=== PATIENT | female | born 1985 | race African-American/Black ===

== ENCOUNTER 2016-10-10 18:56 | Emergency (ER) | payer OTHER ==
[~2016-10-10] VITALS: Ht 160 cm; Wt 122.0 kg
[~2016-10-10 18:56] MED LIST: ADVIL200 MG PO; PROTONIX40 MG PO
== END 2016-10-10 23:41 | disposition home or self-care (01) ==
LOC: ED 18:56
DX: A08.4 Viral intestinal infection, unspecified (principal); Z88.5 Allergy status to narcotic agent; Z91.018 Allergy to other foods; Z88.1 Allergy status to other antibiotic agents
CPT/HCPCS: 36415; 70450; 80053; 85025; 85651; 99284

== ENCOUNTER 2017-03-23 16:54 | Emergency (ER) | payer OTHER | END 2017-03-23 18:22 | disposition home or self-care (01) | LOC: ED 16:54 | DX: Z53.21 Procedure and treatment not carried out due to patient leaving prior to being seen by health care provider (principal) ==

== ENCOUNTER 2017-05-10 01:05 | Emergency (ER) | payer OTHER ==
[~2017-05-10] VITALS: Ht 160 cm; Wt 118.8 kg
[2017-05-10] MEDS ORDERED: DOXYCYCLINE HY100 MG PO (02:29)
== END 2017-05-10 02:37 | disposition home or self-care (01) ==
LOC: ED 01:05
DX: J40 Bronchitis, not specified as acute or chronic (principal); K21.9 Gastro-esophageal reflux disease without esophagitis; Z88.5 Allergy status to narcotic agent; Z91.018 Allergy to other foods; Z88.1 Allergy status to other antibiotic agents
CPT/HCPCS: 71046; 99283

== ENCOUNTER 2017-07-15 17:50 | Emergency (ER) | payer OTHER ==
[~2017-07-15] VITALS: Ht 160 cm; Wt 129.3 kg
[~2017-07-15 17:50] MED LIST changes: +DOXYCYCLINE HY100 MG PO
[2017-07-15] MEDS ORDERED: XANAX0.5 MG PO (18:49)
--- NOTE | 2017-07-16 07:16 | EKG ---
[facility] [address] [facility] [place], [place] [address] Signed Sinus tachycardia Otherwise normal ECG No previous ECGs available Confirmed by EVELIA WORLEY MD ([id number]) on 07/16/2017 7:15:57 AM Electronically Signed By: EVELIA WORLEY MD 07/16/17 0716 PATIENT NAME: REA CRAIG Electrocardiogram DATE OF : 87 PHYSICIAN: EVELIA WORLEY MD REPORT #: [id number] REPORT IS CONFIDENTIAL AND NOT TO BE RELEASED WITHOUT AUTHORIZATION
== END 2017-07-15 19:09 | disposition home or self-care (01) ==
LOC: ED 17:50
DX: F41.9 Anxiety disorder, unspecified (principal); R00.0 Tachycardia, unspecified; G43.909 Migraine, unspecified, not intractable, without status migrainosus; Z88.5 Allergy status to narcotic agent; Z91.018 Allergy to other foods; Z88.1 Allergy status to other antibiotic agents
CPT/HCPCS: 80048; 84484; 85025; 93005; 93010; 99283

== ENCOUNTER 2017-08-18 15:23 | Emergency (ER) | payer OTHER ==
[~2017-08-18] VITALS: Ht 160 cm; Wt 126.1 kg
[~2017-08-18 15:23] MED LIST changes: +XANAX0.5 MG PO
[2017-08-18] MEDS ORDERED: PROTONIX20 MG PO (15:31)
== END 2017-08-18 15:36 | disposition home or self-care (01) ==
LOC: ED 15:23
DX: R41.840 Attention and concentration deficit (principal)

== ENCOUNTER 2017-09-14 22:30 | Emergency (ER) | payer OTHER ==
[~2017-09-14] VITALS: Ht 160 cm; Wt 119.3 kg
[~2017-09-14 22:30] MED LIST changes: +PROTONIX20 MG PO
== END 2017-09-15 01:15 | disposition home or self-care (01) ==
LOC: ED 22:30
DX: R11.0 Nausea (principal); Z88.5 Allergy status to narcotic agent; Z91.018 Allergy to other foods; Z88.1 Allergy status to other antibiotic agents; Z88.8 Allergy status to other drugs, medicaments and biological substances; Z79.899 Other long term (current) drug therapy; Z87.891 Personal history of nicotine dependence
CPT/HCPCS: 80053; 81001; 83036; 84443; 84703; 85025; 99283

== ENCOUNTER 2018-04-08 01:18 | Emergency (ER) | payer OTHER, SELFPAY ==
[~2018-04-08] VITALS: Ht 160 cm; Wt 115.7 kg
[~2018-04-08 01:18] MED LIST changes: +DICYCLOMINE HCL20 MG PO; +KEFLEX500 MG PO; +ZOFRAN ODT4 MG PO; +ZOLOFT25 MG PO
--- OUTSIDE RECORDS SUMMARY | 2018-04-08 01:22 | XMS ---
PreManage Notification: REA CRAIG Security Hospital Monitor Events 1 event(s) in the past 18 months Most recent security events: Elopement at [facility] 03/23/2017 16:54 - Patient eloped before treatment completed. Details: LWBS CRITERIA MET - Group Notification CARE PROVIDERS LEXIE BURNETT Nurse Practitioner: Family 10/26/2017-Current PHONE: Unknown LEXIE BURNETT Primary Care Current PHONE: [phone] Juan C has no Care Guidelines for this patient. Care History Medical/Surgical 10/26/2017 [facility] - PATIENT NO SHOWED TO APT WITH PCP LEXIE BURNETT ON 01/01/18 AND HAS NOT BEEN SEEN AT THE CLINIC SINCE - Patient is currently established with [facility]. If patient is seen in the ED during business hours. Please contact CHWs at [facility]. Care Recommendation: This patient has had 5 or more Emergency Department visits in the last 12 months.\T\nbsp; Patient requires education on the scope and purpose of the ED as an acute care provider not a Primary Care Provider and should not be utilized for chronic conditions.\T\nbsp; These are guidelines and the provider should exercise clinical judgment when providing care. ECuca VISIT COUNT (12 MO.) 7 [facility] TOTAL 7 NOTE: Visits indicate total known visits. ED/UCC VISIT TRACKING (12 MO.) 04/08/2018 01:18 [facility] [place] TYPE: Emergency COMPLAINT: - VOMITING 02/17/2018 20:07 [facility] [place] TYPE: Emergency COMPLAINT: - HEAD PAIN/NON INJURY DIAGNOSES: - Allergy status to narcotic agent status - Allergy status to other antibiotic agents status - Allergy to other foods - Headache - Urinary tract infection, site not specified - Migraine, unspecified, not intractable, without status migrainosus - Other terminal operations manager (current) drug therapy - Allergy status to other drugs, medicaments and biological substances status 10/23/2017 20:32 [facility] [place] TYPE: Emergency COMPLAINT: - ABD PAIN DIAGNOSES: - Allergy status to other drugs, medicaments and biological substances status - Personal history of nicotine dependence - Allergy status to narcotic agent status - Allergy to other foods - Unspecified abdominal pain - Allergy status to other antibiotic agents status - Generalized abdominal pain - Other terminal operations manager (current) drug therapy 09/14/2017 22:30 [facility] [place] TYPE: Emergency COMPLAINT: - BLOOD SUGAR PROBLEM DIAGNOSES: - Other terminal operations manager (current) drug therapy - Nausea - Personal history of nicotine dependence - Allergy status to other drugs, medicaments and biological substances status - Allergy status to other antibiotic agents status - Allergy to other foods - Allergy status to narcotic agent status 08/18/2017 15:24 [facility] [place] TYPE: Emergency COMPLAINT: - POSS ISSUE WITH MEDS/MSE TO CLINIC DIAGNOSES: - Attention and concentration deficit 07/15/2017 17:50 [facility] [place] TYPE: Emergency COMPLAINT: - ABNORMAL VITALS DIAGNOSES: - Allergy status to other antibiotic agents status - Allergy to other foods - Migraine, unspecified, not intractable, without status migrainosus - Allergy status to narcotic agent status - Anxiety disorder, unspecified - Tachycardia, unspecified 05/10/2017 01:05 [facility] [place] TYPE: Emergency COMPLAINT: - CHEST CONGESTION DIAGNOSES: - Allergy to other foods - Gastro-esophageal reflux disease without esophagitis - Allergy status to narcotic agent status - Allergy status to other antibiotic agents status - Cough - Bronchitis, not specified as acute or chronic INPATIENT VISIT TRACKING (12 MO.) No inpatient visits to display in this time frame [id number]
[2018-04-08] MEDS ORDERED: MACROBID 100 M100 MG PO (05:04)
== END 2018-04-08 05:15 | disposition home or self-care (01) ==
LOC: ED 01:18
DX: K52.9 Noninfective gastroenteritis and colitis, unspecified (principal); Z91.018 Allergy to other foods; Z88.1 Allergy status to other antibiotic agents; Z88.5 Allergy status to narcotic agent; Z88.8 Allergy status to other drugs, medicaments and biological substances; Z79.899 Other long term (current) drug therapy
CPT/HCPCS: 80053; 81001; 83690; 85025; 87088; 87147; 96361; 96374; 96375; 99284-25; J2270; J2405; J7030

== ENCOUNTER 2019-06-18 11:36 | Emergency (ER) | payer OTHER ==
[~2019-06-18] VITALS: Ht 160 cm; Wt 115.7 kg
[~2019-06-18 11:36] MED LIST changes: +MACROBID 100 M100 MG PO
--- OUTSIDE RECORDS SUMMARY | 2019-06-18 11:38 | XMS ---
PreManage Notification: REA CRAIG Security Smoke Eater Events No recent Security Events currently on file CRITERIA MET - Group Notification - [facility] - Has Care Guidelines CARE PROVIDERS LEXIE BURNETT Nurse Practitioner: Family 10/26/2017-Current PHONE: [phone] LEXIE BURNETT Primary Care Current PHONE: [phone] Juan C has no Care Guidelines for this patient. Care History Medical/Surgical 10/26/2017 [facility] - PATIENT NO SHOWED TO APT WITH PCP LEXIE BURNETT ON 01/01/18 AND HAS NOT BEEN SEEN AT THE CLINIC SINCE - Patient is currently established with [facility]. If patient is seen in the ED during business hours. Please contact CHWs at [facility]. Care Recommendation: This patient has had 5 or more Emergency Department visits in the last 12 months.\T\nbsp; Patient requires education on the scope and purpose of the ED as an acute care provider not a Primary Care Provider and should not be utilized for chronic conditions.\T\nbsp; These are guidelines and the provider should exercise clinical judgment when providing care. Jessica VISIT COUNT (12 MO.) 1 [facility] TOTAL 1 NOTE: Visits indicate total known visits. ED/UCC VISIT TRACKING (12 MO.) 06/18/2019 11:36 [facility] [place] TYPE: Emergency COMPLAINT: - LOWER ABD PAIN INPATIENT VISIT TRACKING (12 MO.) No inpatient visits to display in this time frame [email or web address]
== END 2019-06-18 14:13 | disposition home or self-care (01) ==
LOC: ED 11:36
DX: R10.2 Pelvic and perineal pain (principal); G43.909 Migraine, unspecified, not intractable, without status migrainosus; Z87.891 Personal history of nicotine dependence
CPT/HCPCS: 76830; 76856; 81001; 84703; 85025; 96374; 99284-25; J1885

== ENCOUNTER 2020-06-09 20:18 | Emergency (ER) | payer OTHER ==
[~2020-06-09] VITALS: Ht 160 cm; Wt 135.2 kg
[~2020-06-09 20:18] MED LIST changes: +ZOFRAN4 MG PO
--- OUTSIDE RECORDS SUMMARY | 2020-06-09 20:22 | XMS ---
PreManage Notification: REA CRAIG Security Meeting Specialist Events 1 event(s) in the past 18 months Most recent security events: Elopement at [facility] 04/23/2020 16:53 - Other Details: PATIENT LWBS. CRITERIA MET - Group Notification CARE PROVIDERS LEXIE BURNETT Nurse Practitioner: Family 10/26/2017-Current PHONE: [phone] Juan C has no Care Guidelines for this patient. Care History Medical/Surgical 10/26/2017 [facility] - PATIENT NO SHOWED TO APT WITH PCP LEXIE BURNETT ON 01/01/18 AND HAS NOT BEEN SEEN AT THE CLINIC SINCE - Patient is currently established with [facility]. If patient is seen in the ED during business hours. Please contact CHWs at [facility]. Care Recommendation: This patient has had 5 or more Emergency Department visits in the last 12 months.\T\nbsp; Patient requires education on the scope and purpose of the ED as an acute care provider not a Primary Care Provider and should not be utilized for chronic conditions.\T\nbsp; These are guidelines and the provider should exercise clinical judgment when providing care. E.D. VISIT COUNT (12 MO.) [address] [facility] TOTAL 3 NOTE: Visits indicate total known visits. ED/UCC VISIT TRACKING (12 MO.) 06/09/2020 20:20 [facility] [place] TYPE: Emergency COMPLAINT: - RT FLANK PAIN 04/23/2020 16:53 [facility] [place] TYPE: Emergency COMPLAINT: - FALL 06/18/2019 11:36 [facility] [place] TYPE: Emergency COMPLAINT: - LOWER ABD PAIN DIAGNOSES: - Migraine, unspecified, not intractable, without status migrainosus - Personal history of nicotine dependence - Pelvic and perineal pain - Unspecified abdominal pain INPATIENT VISIT TRACKING (12 MO.) No inpatient visits to display in this time frame [id number]
[2020-06-09] MEDS ORDERED: DICYCLOMINE HCL20 MG PO (20:39)
[2020-06-09] MEDS ORDERED: OMEPRAZOLE20 MG PO (20:39)
[2020-06-09] MEDS ORDERED: CYCLOBENZAPRINE10 MG PO (22:55)
[2020-06-09] MEDS ORDERED: DICLOFENAC SODI75 MG PO (22:55)
== END 2020-06-09 23:26 | disposition home or self-care (01) ==
LOC: ED 20:18
DX: R07.89 Other chest pain (principal); G43.909 Migraine, unspecified, not intractable, without status migrainosus; Z87.891 Personal history of nicotine dependence; Z88.8 Allergy status to other drugs, medicaments and biological substances; Z88.5 Allergy status to narcotic agent; Z91.018 Allergy to other foods; Z79.899 Other long term (current) drug therapy
CPT/HCPCS: 74176; 80053; 81001; 84703; 85025; 85379; 96374; 96375; 99285-25; J1885; J2405; J7030

== ENCOUNTER 2020-11-10 00:42 | Emergency (ER) | payer OTHER ==
[~2020-11-10] VITALS: Ht 160 cm; Wt 132.0 kg
[~2020-11-10 00:42] MED LIST changes: +CYCLOBENZAPRINE10 MG PO; +DICLOFENAC SODI75 MG PO; +OMEPRAZOLE20 MG PO
--- OUTSIDE RECORDS SUMMARY | 2020-11-10 00:50 | XMS ---
PreManage Notification: REA CRAIG Security Grab Jack Man Events 1 event(s) in the past 18 months Most recent security events: Elopement at [facility] 04/23/2020 16:53 - Other Details: PATIENT LWBS. CRITERIA MET - Group Notification CARE PROVIDERS LEXIE BURNETT Nurse Practitioner: 10/26/2017-Current PHONE: [phone] Juan C has no Care Guidelines for this patient. Jessica VISIT COUNT (12 MO.) 3 [facility]. TOTAL 3 NOTE: Visits indicate total known visits. ED/UCC VISIT TRACKING (12 MO.) 11/10/2020 00:42 [facility] [place] TYPE: Emergency COMPLAINT: - CHEST PAIN NAUSEA 06/09/2020 20:20 [facility] TYPE: Emergency COMPLAINT: - RT FLANK PAIN DIAGNOSES: - Other chest pain - Allergy to other foods - Other terminal computer operator (current) drug therapy - Allergy status to narcotic agent - Unspecified abdominal pain - Allergy status to other drugs, medicaments and biological substances - Personal history of nicotine dependence - Migraine, unspecified, not intractable, without status migrainosus 04/23/2020 16:53 [facility] TYPE: Emergency COMPLAINT: - FALL INPATIENT VISIT TRACKING (12 MO.) No inpatient visits to display in this time frame [id number]
--- NOTE | 2020-11-11 12:54 | EKG ---
[facility] [address] [facility] [place], [place] [address] Signed Sinus tachycardia Otherwise normal ECG When compared with ECG of 15-JUL-2017 17:57, No significant change was found Confirmed by LISSY DUMONT MD ([id number]) on 11/11/2020 12:54:35 PM Electronically Signed By: LISSY DUMONT MD 11/11/20 1254 PATIENT NAME: KATIANILREA Electrocardiogram DATE OF : 87 PHYSICIAN: LISSY DUMONT MD REPORT #: [id number] REPORT IS CONFIDENTIAL AND NOT TO BE RELEASED WITHOUT AUTHORIZATION
== END 2020-11-10 04:08 | disposition home or self-care (01) ==
LOC: ED 00:42
DX: R07.89 Other chest pain (principal); R11.0 Nausea; Z88.1 Allergy status to other antibiotic agents; Z88.5 Allergy status to narcotic agent; Z91.018 Allergy to other foods; G43.909 Migraine, unspecified, not intractable, without status migrainosus; Z88.8 Allergy status to other drugs, medicaments and biological substances
CPT/HCPCS: 71260; 80053; 83690; 83735; 84484; 84703; 85025; 93005; 93010; 99285-25; J1885; J2405; Q9967

== ENCOUNTER 2021-04-10 00:13 | Emergency (ER) | payer OTHER ==
[~2021-04-10] VITALS: Ht 160 cm; Wt 132.0 kg
--- OUTSIDE RECORDS SUMMARY | 2021-04-10 00:22 | XMS ---
PreManage Notification: REA CRAIG Security Audiovisual Technician Events 1 event(s) in the past 18 months Most recent security events: Elopement at [facility] 04/23/2020 16:53 - Other Details: PATIENT LWBS. CRITERIA MET - Group Notification CARE PROVIDERS KAE SILVA Physician Burrer Machine 11/13/2020-Current PHONE: [phone] LEXIE BURNETT Nurse Practitioner: 10/26/2017-Current PHONE: Unknown Juan C has no Care Guidelines for this patient. E.Marina. VISIT COUNT (12 MO.) 4 [facility] TOTAL 4 NOTE: Visits indicate total known visits. ED/UCC VISIT TRACKING (12 MO.) 04/10/2021 00:[address] [facility] [place] TYPE: Emergency COMPLAINT: - PAIN WHEN BREATHING 11/10/2020 00:42 [facility] TYPE: Emergency COMPLAINT: - CHEST PAIN NAUSEA DIAGNOSES: - Allergy status to other drugs, medicaments and biological substances - Allergy to other foods - Allergy status to other antibiotic agents - Other chest pain - Migraine, unspecified, not intractable, without status migrainosus - Allergy status to narcotic agent - Nausea 06/09/2020 20:20 [facility] TYPE: Emergency COMPLAINT: - RT FLANK PAIN DIAGNOSES: - Other chest pain - Allergy to other foods - Other longterm (current) drug therapy - Allergy status to narcotic agent - Unspecified abdominal pain - Allergy status to other drugs, medicaments and biological substances - Personal history of nicotine dependence - Migraine, unspecified, not intractable, without status migrainosus 04/23/2020 16:53 [facility] [place] TYPE: Emergency COMPLAINT: - FALL INPATIENT VISIT TRACKING (12 MO.) No inpatient visits to display in this time frame [id number]
--- NOTE | 2021-04-11 11:26 | EKG ---
[facility] [address] [facility] [place] [address] Signed Sinus tachycardia Nonspecific T wave abnormality Abnormal ECG When compared with ECG of 10-NOV-2020 00:51, Nonspecific T wave abnormality now evident in Anterior leads Confirmed by LISSY DUMONT MD ([id number]) on 04/11/2021 11:26:31 AM Electronically Signed By: LISSY DUMONT MD 04/11/21 1126 PATIENT NAME: KATIANILREA Electrocardiogram DATE OF : [birth year] PHYSICIAN: LISSY DUMONT MD REPORT #: [id number] REPORT IS CONFIDENTIAL AND NOT TO BE RELEASED WITHOUT AUTHORIZATION
== END 2021-04-10 02:25 | disposition home or self-care (01) ==
LOC: ED 00:13
DX: R07.89 Other chest pain (principal); G43.909 Migraine, unspecified, not intractable, without status migrainosus; Z88.1 Allergy status to other antibiotic agents; Z88.8 Allergy status to other drugs, medicaments and biological substances; Z88.5 Allergy status to narcotic agent; Z91.018 Allergy to other foods
CPT/HCPCS: 71046; 80053; 80503; 83690; 84484; 84703; 85025; 85379; 93005; 93010; 99285-25

== ENCOUNTER 2021-10-25 18:18 | Emergency (ER) | payer SELFPAY ==
[~2021-10-25] VITALS: Ht 160 cm; Wt 135.6 kg
--- OUTSIDE RECORDS SUMMARY | 2021-10-25 18:20 | XMS ---
PreManage Notification: REA CRAIG Security Stereotype Molder Events No recent Security Events currently on file CRITERIA MET - Group Notification CARE PROVIDERS KAE SILVA Physician School Health Assistant 11/13/2020-Current PHONE: [phone] LEXIE BURNETT Nurse Practitioner: 10/26/2017-Current PHONE: Unknown Juan C has no Care Guidelines for this patient. Jessica VISIT COUNT (12 MO.) 3 [facility] TOTAL 3 NOTE: Visits indicate total known visits. ED/UCC VISIT TRACKING (12 MO.) 10/25/2021 18:19 [facility] TYPE: Emergency COMPLAINT: - L SIDED FLANK PAIN 04/10/2021 00:14 [facility] TYPE: Emergency COMPLAINT: - PAIN WHEN BREATHING DIAGNOSES: - Allergy status to other drugs, medicaments and biological substances - Allergy to other foods - Migraine, unspecified, not intractable, without status migrainosus - Anxiety disorder, unspecified - Other chest pain - Allergy status to narcotic agent - Allergy status to other antibiotic agents 11/10/2020 00:[address] [facility] [place] TYPE: Emergency COMPLAINT: - CHEST PAIN NAUSEA DIAGNOSES: - Allergy status to other drugs, medicaments and biological substances - Allergy to other foods - Allergy status to other antibiotic agents - Other chest pain - Migraine, unspecified, not intractable, without status migrainosus - Allergy status to narcotic agent - Nausea INPATIENT VISIT TRACKING (12 MO.) No inpatient visits to display in this time frame [id number]
[2021-10-25] MEDS ORDERED: CIPROFLOXACIN500 MG PO (19:07)
[2021-10-25] MEDS ORDERED: HYDROCODON-ACE1 EA10 PO (21:44)
== END 2021-10-25 21:56 | disposition home or self-care (01) ==
LOC: ED 18:18
DX: N83.202 Unspecified ovarian cyst, left side (principal); G43.909 Migraine, unspecified, not intractable, without status migrainosus; Z88.5 Allergy status to narcotic agent; Z88.8 Allergy status to other drugs, medicaments and biological substances; Z91.018 Allergy to other foods; Z88.1 Allergy status to other antibiotic agents
CPT/HCPCS: 36415; 74176; 80053; 81001; 84703; 85025; 96374; 99284-25; A9270; J1885; J7030

== ENCOUNTER 2022-05-20 20:02 | Emergency (ER) | payer BC ==
[~2022-05-20] VITALS: Ht 160 cm; Wt 136.0 kg
[~2022-05-20 20:02] MED LIST changes: +CIPROFLOXACIN500 MG PO; +HYDROCODON-ACE1 EA10 PO
--- OUTSIDE RECORDS SUMMARY | 2022-05-20 20:04 | XMS ---
PreManage Notification: REA CRAIG Security Clinical Business Manager Events No recent Security Events currently on file CRITERIA MET - Group Notification CARE PROVIDERS KAE SILVA Physician Service Desk Team Lead 11/13/2020-Current PHONE: Unknown LEXIE BURNETT Nurse Practitioner: 10/26/2017-Current PHONE: Unknown Juan C has no Care Guidelines for this patient. Jessica VISIT COUNT (12 MO.) 2 [facility] TOTAL 2 NOTE: Visits indicate total known visits. ED/UCC VISIT TRACKING (12 MO.) 05/20/2022 20:03 [facility] TYPE: Emergency COMPLAINT: - LBP,ABD PAIN,NAUSEA,FEVER 10/25/2021 18:19 [facility] TYPE: Emergency COMPLAINT: - L SIDED FLANK PAIN DIAGNOSES: - Migraine, unspecified, not intractable, without status migrainosus - Allergy status to narcotic agent - Unspecified ovarian cyst, left side - Allergy status to other drugs, medicaments and biological substances - Allergy to other foods - Allergy status to other antibiotic agents - Unspecified abdominal pain INPATIENT VISIT TRACKING (12 MO.) No inpatient visits to display in this time frame [id number]
== END 2022-05-20 23:07 | disposition home or self-care (01) ==
LOC: ED 20:02
DX: R10.9 Unspecified abdominal pain (principal); D72.829 Elevated white blood cell count, unspecified; Z20.822 Contact with and (suspected) exposure to COVID-19; G43.909 Migraine, unspecified, not intractable, without status migrainosus; Z88.8 Allergy status to other drugs, medicaments and biological substances; Z88.5 Allergy status to narcotic agent; Z88.1 Allergy status to other antibiotic agents; Z91.018 Allergy to other foods
CPT/HCPCS: 36415; 74176; 80048; 80053; 81003; 83605; 83690; 84703; 85025; 87502; 87880; 96360; 96361; 99284-25; J7030; U0003

== ENCOUNTER 2024-05-24 09:11 | Emergency (ER) | payer BC ==
[~2024-05-24] VITALS: Ht 160 cm; Wt 147.9 kg
[~2024-05-24 09:11] MED LIST changes: +BACTRIM DS TAB1 EACH PO; +ELIQUIS5 MG PO; +IBUPROFEN800 MG PO; +METFORMIN HCL500 MG PO; +NURTEC ODT75 MG PO; +ONDANSETRON ODT4 MG PO; +ONDANSETRON ODT8 MG PO; +SPRINTEC1 EACH PO; +XANAX0.25 MG PO
--- OUTSIDE RECORDS SUMMARY | 2024-05-24 09:18 | XMS ---
PreManage Notification: REA CRAIG Security Piano Mechanic Events No recent Security Events currently on file CRITERIA MET - Group Notification CARE PROVIDERS LEXIE BURNETT Nurse Practitioner: 10/26/2017-Current PHONE: Unknown CARRI PERRY \T\ Gynecology Current PHONE: [phone] Juan C has no Care Guidelines for this patient. Jessica VISIT COUNT (12 MO.) Alecia Baires TOTAL 3 NOTE: Visits indicate total known visits. ED/UCC VISIT TRACKING (12 MO.) 05/24/2024 09:11 [facility] TYPE: Emergency COMPLAINT: - CHEST PAIN 06/17/2023 22:19 [facility] TYPE: Emergency COMPLAINT: - CHEST PAIN DIAGNOSES: - Allergy status to narcotic agent - Allergy status to other antibiotic agents - Allergy status to other drugs, medicaments and biological substances - Allergy to other foods - Anxiety disorder, unspecified - Other chest pain - Other moth exterminator (current) drug therapy - Other pulmonary embolism without acute cor pulmonale - Panic disorder [episodic paroxysmal anxiety] 06/12/2023 08:01 [facility] TYPE: Emergency COMPLAINT: - R SIDE LUNG PAIN, COUGH, SOB INPATIENT VISIT TRACKING (12 MO.) 06/12/2023 12:18 [facility] TYPE: Critical Care COMPLAINT: - PE DIAGNOSES: - Allergy status to narcotic agent - Allergy status to other antibiotic agents - Allergy status to other drugs, medicaments and biological substances - Allergy to other foods - Anxiety disorder, unspecified - Body mass index [BMI] 50.0-59.9, adult - Irritable bowel syndrome without diarrhea - Migraine, unspecified, not intractable, without status migrainosus - Morbid (severe) obesity due to excess calories - Other disorders of intestinal carbohydrate absorption - Other intermediate (current) drug therapy - Other pulmonary embolism without acute cor pulmonale - Other specified postprocedural states - Urinary tract infection, site not specified [id number]
[2024-05-24 09:51] LABS: INR 0.96 (0.80-1.30); PROTIME 12.7 Sec (11.2-14.2)
[2024-05-24 10:03] LABS: BASOPHILS 0.7 % (0-2); EOSINOPHILS 2.9 % (0-6); HEMOGLOBIN 11.2 g/dL (12.0-18.0); LYMPHOCYTES 21.9 % (24-44); MCH 23.5 (27-36); MCV 73.4 fl (81-99); MONOCYTES 5.6 % (0-12); NEUTROPHILS 68.9 % (39-80); PLATELET COUNT 335 K/uL (140-440); RBC 4.77 M/ul (4.3-5.7); RDW 18.4 (10.5-15.0)
[2024-05-24 10:21] LABS: ALBUMIN 3.1 g/dL (3.4-5.0); ALBUMIN/GLOBULIN RATIO 0.67 (1.1-2.4); ALKALINE PHOSPHATASE 92 U/L (46-116); ALT (SGPT) 16 U/L (14-59); ANION GAP 14.1 (7-21); AST (SGOT) 10 U/L (15-37); BILIRUBIN, TOTAL 0.6 mg/dL (0.2-1.0); BUN/CREATININE RATIO 15.29 (6.0-28.6); CALCIUM 8.9 mg/dL (8.5-10.1); CARBON DIOXIDE 27 mmol/L (21-32); CHLORIDE 101 mmol/L (98-107); CREATININE, SERUM 0.85 mg/dL (0.55-1.02); GLOMERULAR FILTRATION RATE,EST 90 mL/min (>60); POTASSIUM 4.1 mmol/L (3.5-5.1); PROTEIN, TOTAL 7.7 g/dL (6.4-8.2); UREA NITROGEN 13 mg/dL (7-18)
[2024-05-24] MEDS ORDERED: KETOROLAC TROMETHAMINE 15 MG/ML VIAL IV ONE (10:30)
[2024-05-24 11:00] VITALS: BP 115/74
--- NOTE | 2024-05-25 19:45 | EKG ---
[facility] [address] [facility] [place], [place] [address] Signed Sinus tachycardia Otherwise normal ECG When compared with ECG of 17-JUN-2023 22:22, No significant change was found Confirmed by Prince Sandoval MD ([id number]) on 05/25/2024 7:44:51 PM Electronically Signed By: PRINCE SANDOVAL MD 05/25/241944 PATIENT NAME: REA CRAIG TONIA Electrocardiogram DATE OF : 87 PHYSICIAN: PRINCE SANDOVAL MD REPORT #: [id number] REPORT IS CONFIDENTIAL AND NOT TO BE RELEASED WITHOUT AUTHORIZATION
== END 2024-05-24 11:01 | disposition home or self-care (01) ==
LOC: ED 09:11
PROVIDERS: Emergency Medicine
DX: R07.89 Other chest pain (principal); G43.909 Migraine, unspecified, not intractable, without status migrainosus; K21.9 Gastro-esophageal reflux disease without esophagitis; Z86.711 Personal history of pulmonary embolism; Z91.018 Allergy to other foods; Z88.1 Allergy status to other antibiotic agents; Z88.5 Allergy status to narcotic agent; Z88.8 Allergy status to other drugs, medicaments and biological substances; Z79.84 Long term (current) use of oral hypoglycemic drugs; Z79.899 Other long term (current) drug therapy
CPT/HCPCS: 36415; 71045; 80053; 83735; 84484; 85025; 85379; 85610; 93005; 93010; 96374; 99285-25; J1885

== ENCOUNTER 2024-07-25 08:31 | Emergency (ER) | payer BC ==
[~2024-07-25] VITALS: Ht 160 cm; Wt 149.6 kg
--- OUTSIDE RECORDS SUMMARY | 2024-07-25 08:34 | XMS ---
PreManage Notification: REA CRAIG Security Aircraft Painter Events No recent Security Events currently on file CRITERIA MET - Group Notification CARE PROVIDERS LEXIE BURNETT Nurse Practitioner: 10/26/2017-Current PHONE: Unknown CARRI PERRY \T\ Gynecology Current PHONE: [phone] Juan C has no Care Guidelines for this patient. Jessica VISIT COUNT (12 MO.) 2 [facility] TOTAL 2 NOTE: Visits indicate total known visits. ED/UCC VISIT TRACKING (12 MO.) 07/25/2024 08:31 [facility] TYPE: Emergency COMPLAINT: - RT LEG PAIN 05/24/2024 09:11 [facility] TYPE: Emergency COMPLAINT: - CHEST PAIN DIAGNOSES: - Allergy status to narcotic agent - Allergy status to other antibiotic agents - Allergy status to other drugs, medicaments and biological substances - Allergy to other foods - Gastro-esophageal reflux disease without esophagitis - intermediate (current) use of oral hypoglycemic drugs - Migraine, unspecified, not intractable, without status migrainosus - Other chest pain - Other local company intermodal truck driver (current) drug therapy - Personal history of pulmonary embolism INPATIENT VISIT TRACKING (12 MO.) No inpatient visits to display in this time frame [id number]
[2024-07-25 09:56] VITALS: BP 127/90
== END 2024-07-25 09:56 | disposition home or self-care (01) ==
LOC: ED 08:31
DX: M79.661 Pain in right lower leg (principal); K21.9 Gastro-esophageal reflux disease without esophagitis
CPT/HCPCS: 93971; 99283-25

== ENCOUNTER 2024-07-28 12:01 | Emergency (ER) | payer BC ==
[~2024-07-28] VITALS: Ht 160 cm; Wt 142.2 kg
--- OUTSIDE RECORDS SUMMARY | 2024-07-28 12:05 | XMS ---
PreManage Notification: REA CRAIG Security Checkout Operator Events No recent Security Events currently on file CRITERIA MET - Group Notification - [facility] - 2 Visits in 30 Days CARE PROVIDERS LEXIE BURNETT Nurse Practitioner: 10/26/2017-Current PHONE: Unknown CARRI PERRY Obstetrics \T\ Gynecology Current PHONE: [phone] Juan C has no Care Guidelines for this patient. ECuca VISIT COUNT (12 MO.) [address] [place] [address] TOTAL 3 NOTE: Visits indicate total known visits. ED/UCC VISIT TRACKING (12 MO.) 07/28/2024 12:02 [facility] [place] TYPE: Emergency COMPLAINT: - RT LEG PAIN 07/25/2024 08:31 [facility] TYPE: Emergency COMPLAINT: - RT LEG PAIN DIAGNOSES: - Gastro-esophageal reflux disease without esophagitis - Pain in right lower leg 05/24/2024 09:11 [facility] [place] TYPE: Emergency COMPLAINT: - CHEST PAIN DIAGNOSES: - Allergy status to narcotic agent - Allergy status to other antibiotic agents - Allergy status to other drugs, medicaments and biological substances - Allergy to other foods - Gastro-esophageal reflux disease without esophagitis - shelter (current) use of oral hypoglycemic drugs - Migraine, unspecified, not intractable, without status migrainosus - Other chest pain - Other halfway (current) drug therapy - Personal history of pulmonary embolism INPATIENT VISIT TRACKING (12 MO.) No inpatient visits to display in this time frame [id number]
[2024-07-28 12:34] LABS: BASOPHILS 0.8 % (0-2); EOSINOPHILS 2.5 % (0-6); HEMATOCRIT 35.9 % (35.0-50.0); HEMOGLOBIN 11.5 g/dL (12.0-18.0); LYMPHOCYTES 28.7 % (24-44); MCH 23.3 (27-36); MCV 72.9 fl (81-99); MONOCYTES 5.2 % (0-12); NEUTROPHILS 62.8 % (39-80); PLATELET COUNT 394 K/uL (140-440); RBC 4.93 M/ul (4.3-5.7); RDW 18.6 (10.5-15.0)
[2024-07-28 12:52] LABS: ALBUMIN/GLOBULIN RATIO 0.64 (1.1-2.4); ANION GAP 11.4 (7-21); BILIRUBIN, TOTAL 0.8 mg/dL (0.2-1.0); BUN/CREATININE RATIO 11.22 (6.0-28.6); CALCIUM 8.3 mg/dL (8.5-10.1); CREATININE, SERUM 0.98 mg/dL (0.55-1.02); POTASSIUM 3.4 mmol/L (3.5-5.1); PROTEIN, TOTAL 7.7 g/dL (6.4-8.2)
[2024-07-28 14:02] VITALS: BP 134/88
--- NOTE | 2024-07-28 22:09 | EKG ---
[facility] [address] [facility] [place] [address] Signed Sinus tachycardia Possible Inferior infarct , age undetermined Abnormal ECG When compared with ECG of 24-MAY-2024 09:13, Nonspecific T wave abnormality now evident in Anterolateral leads Confirmed by Soife Garcias MD () on 07/28/2024 10:09:14 PM Electronically Signed By: SOFIE GARCIAS MD 07/28/24 2209 PATIENT NAME: KATILUZ MAAntoni RANDALL Electrocardiogram DATE OF : 87 PHYSICIAN: SOFIE GARCIAS MD REPORT #: [id number] REPORT IS CONFIDENTIAL AND NOT TO BE RELEASED WITHOUT AUTHORIZATION
== END 2024-07-28 14:02 | disposition home or self-care (01) ==
LOC: ED 12:01
PROVIDERS: Emergency Medicine
DX: M54.2 Cervicalgia (principal); M79.604 Pain in right leg; G43.909 Migraine, unspecified, not intractable, without status migrainosus; K21.9 Gastro-esophageal reflux disease without esophagitis; Z79.899 Other long term (current) drug therapy; Z91.018 Allergy to other foods; Z88.1 Allergy status to other antibiotic agents; Z88.5 Allergy status to narcotic agent; Z88.8 Allergy status to other drugs, medicaments and biological substances
CPT/HCPCS: 36415; 80053; 82550; 85025; 85379; 93005; 93010; 99283

== ENCOUNTER 2025-03-10 03:23 | Emergency (ER) | payer BC ==
[~2025-03-10] VITALS: Ht 154.9 cm; Wt 144.7 kg
--- OUTSIDE RECORDS SUMMARY | ~2025-03-10 | XMS | Continuity of Care Document ---
Demographics + + + | Address | [address] | | | [place] [address] | + + + | Preferred Language | Unknown | + + + | Marital Status | Never | + + + | Jain Affiliation | Unknown | + + + | Race | White | + + + | Ethnic Group | Not or | + + + Author + + + | Author | [facility] | + + + | Organization | [facility] | + + + | Address | [address] | | | [place] [address] | + + + | Phone | | + + + Care Team Providers + + + + | Care Spray Technician Name | Role | Phone | + + + + Unavailable | Unavailable | + + + + Allergies No information. Encounters No information. Functional Status No information. Immunizations No information. Medications + + + + | date | description | facility | + + + + | (no date) | ONDANSETRON HCL | [facility] | | | | [facility] | + + + + | (no date) | ALPRAZOLAM | [facility] | | | | [facility] | + + + + | (no date) | IBUPROFEN | [facility] | | | | [facility] | + + + + | (no date) | OMEPRAZOLE | [facility] | | | | [facility] | + + + + | (no date) | SERTRALINE HCL | [facility] | | | | [facility] | + + + + | (no date) | Rimegepant Sulfate | [facility] | | | | [facility] | + + + + | (no date) | CIPROFLOXACIN HCL | [facility] | | | | [facility] | + + + + | (no date) | PANTOPRAZOLE SODIUM | [facility] | | | | [facility] | + + + + | (no date) | NORGESTIMATE-ETHINYL | [facility] | | | ESTRADIOL | [facility] | + + + + | (no date) | DICYCLOMINE HCL | [facility] | | | | [facility] | + + + + Problems No information. Procedures No information. Results/Labs No information. Social History +--------+ + + | date | description | facility | +--------+ + + Vital Signs No information."
--- OUTSIDE RECORDS SUMMARY | 2025-03-10 03:30 | XMS ---
PreManage Notification: REA CRAIG Security Air Technician Events No recent Security Events currently on file CRITERIA MET - Group Notification CARE PROVIDERS LEXIE BURNETT Nurse Practitioner: Family 10/26/2017-Current PHONE: [phone] CARRI PERRY \T\ Gynecology Current PHONE: [phone] Juan C has no Care Guidelines for this patient. Jessica VISIT COUNT (12 MO.) Joi Baires TOTAL 4 NOTE: Visits indicate total known visits. ED/UCC VISIT TRACKING (12 MO.) 03/10/2025 03:24 [facility] TYPE: Emergency COMPLAINT: - ABD PAIN 07/28/2024 12:02 [facility] TYPE: Emergency COMPLAINT: - RT LEG PAIN DIAGNOSES: - Allergy status to narcotic agent - Allergy status to other antibiotic agents - Allergy status to other drugs, medicaments and biological substances - Allergy to other foods - Cervicalgia - Gastro-esophageal reflux disease without esophagitis - Migraine, unspecified, not intractable, without status migrainosus - Other keno terminal operator (current) drug therapy - Pain in right leg 07/25/2024 08:31 [facility] TYPE: Emergency COMPLAINT: - RT LEG PAIN DIAGNOSES: - Gastro-esophageal reflux disease without esophagitis - Pain in right lower leg 05/24/2024 09:11 [facility] TYPE: Emergency COMPLAINT: - CHEST PAIN DIAGNOSES: - Allergy status to narcotic agent - Allergy status to other antibiotic agents - Allergy status to other drugs, medicaments and biological substances - Allergy to other foods - Gastro-esophageal reflux disease without esophagitis - remote computer terminal operator (current) use of oral hypoglycemic drugs - Migraine, unspecified, not intractable, without status migrainosus - Other chest pain - Other halfway (current) drug therapy - Personal history of pulmonary embolism INPATIENT VISIT TRACKING (12 MO.) No inpatient visits to display in this time frame [id number]
[2025-03-10] MEDS ORDERED: PHENAZOPYRIDINE HCL 100 MG TAB PO ONE (04:00)
[2025-03-10] MEDS ORDERED: CEPHALEXIN MONOHYDRATE 500 MG HOME.PACK PO ONE (04:00)
[2025-03-10 04:23] LABS: BLOOD/HGB, URINE NEGATIVE (Negative); KETONE, URINE SMALL (Negative); LEUK ESTERASE, URINE NEGATIVE (negative); NITRITE, URINE NEGATIVE (negative)
[2025-03-10 05:24] LABS: BASOPHILS 0.4 % (0.1-1.2); EOSINOPHILS 2.6 % (0.7-5.8); LYMPHOCYTES 25.5 % (19.3-51.7); MCH 23.7 PG (25.6-32.2); MCHC 30.4 g/dL (32.2-35.5); MCV 77.9 fL (79.4-94.8); MONOCYTES 5.2 % (4.7-12.5); NEUTROPHILS 65.9 % (34.0-71.1); RBC 4.89 M/uL (3.93-5.22)
[2025-03-10] MEDS ORDERED: LACTATED RINGER'S 1,000 ML IV ONE (05:45)
[2025-03-10 05:52] LABS: ALT (SGPT) 13.0 U/L (14-59); AST (SGOT) 10.0 U/L (15-37); GLOMERULAR FILTRATION RATE,EST 82.0 mL/min (>60); PROTEIN, TOTAL 7.6 g/dL (6.4-8.2); UREA NITROGEN 13.0 mg/dL (7-18)
[2025-03-10] MEDS ORDERED: DICYCLOMINE HCL10 MG PO (06:37)
[2025-03-10 06:41] LABS: LACTIC ACID, BLOOD 0.6 mmol/L (0.4-2.0)
[2025-03-10] MEDS ORDERED: DICYCLOMINE HCL 10 MG HOME.PACK PO ONE (06:45)
[2025-03-10 07:32] VITALS: BP 144/64
== END 2025-03-10 07:34 | disposition home or self-care (01) ==
LOC: ED 03:23
PROVIDERS: Internal Medicine
DX: K58.9 Irritable bowel syndrome, unspecified (principal); Z90.710 Acquired absence of both cervix and uterus; K21.9 Gastro-esophageal reflux disease without esophagitis; Z79.899 Other long term (current) drug therapy
CPT/HCPCS: 36415; 74177; 80053; 81003; 83605; 83690; 84703; 85025; 87040; 99284-25; A9270; J7121; Q9967